=== PATIENT | male | born 2000 | race Caucasian/White ===

== ENCOUNTER 2022-09-02 17:16 | Emergency (ER) | payer BC, SELFPAY ==
[2022-09-02 17:29] VITALS: BP 125/70; PULSE 78; RESP 20; TEMP 37; O2SAT 97; BMI 25.8
--- NOTE | 2022-09-02 18:21 | CRLHL7_ITS ---
For Patients: As a result of the Century Cures Act, medical imaging exams and procedure reports are released immediately into your electronic medical record. You may view this report before your referring provider. If you have questions, please contact your health care provider. DATE: 09/02/2022. CLINICAL HISTORY: Head injury. TECHNIQUE: Standard helical CT image acquisition of the brain was performed. COMPARISON: None available. FINDINGS: There is no intracranial hemorrhage. No extra-axial collection, mass effect, or midline shift. Bridges-white matter differentiation is preserved. The ventricles are normal in size and morphology for patient age. No displaced calvarial fracture The orbits are unremarkable. The paranasal sinuses are unremarkable. The mastoid air cells are unremarkable. The soft tissues are unremarkable. IMPRESSION: No CT evidence of acute intracranial abnormality or closed-head injury. Please note that all CT scans at this facility use dose modulation, iterative reconstruction, and/or weight-based dosing when appropriate to reduce radiation dose to as low as reasonably achievable. Dictated by Jarocho Cartwright MD @ 09/02/2022 6:39:29 PM (Electronically Signed)
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
== END 2022-09-02 19:50 | disposition home or self-care (01) ==
PROVIDERS: Emergency Provider Family Medicine
DX: S06.0X0A Concussion without loss of consciousness, initial encounter (principal); Y04.2XXA Assault by strike against or bumped into by another person, initial encounter
CPT/HCPCS: 70450; 99283; 99284